=== PATIENT | female | born 1985 | race Two or more races ===

== ENCOUNTER 2020-07-01 14:15 | Inpatient (IN) | payer OTHER ==
[~2020-07-01] VITALS: Ht 167.6 cm; Wt 78.9 kg
[2020-07-07] MEDS ORDERED: PRENATAL CAPLE1 EAC1 PO (18:33)
== END 2020-07-09 10:45 | disposition home or self-care (01) | DRG 807 ==
LOC: SURG-SUITE 07-07 17:45 → LDR 07-07 17:45 → SURG-SUITE 07-07 18:57 → OB/GYN 07-10 14:15
PROVIDERS: ADMIT Obstetrics & Gynecology; ATTEND Obstetrics & Gynecology
PROC: 10E0XZZ Delivery of Products of Conception, External Approach (ICD-10-PCS; principal; 2020-07-07)
PROC: 4A1HXFZ Monitoring of Products of Conception, Cardiac Rhythm, External Approach (ICD-10-PCS; 2020-07-07)
DX: O70.1 Second degree perineal laceration during delivery (principal); Z37.0 Single live birth; Z3A.39 39 weeks gestation of pregnancy; Z20.822 Contact with and (suspected) exposure to COVID-19

== ENCOUNTER 2020-07-04 08:35 | Outpatient (CLI) | payer OTHER | END 2020-07-04 09:45 | disposition home or self-care (01) | LOC: NST 08:35 | PROVIDERS: ATTEND Obstetrics & Gynecology Maternal & Fetal Medicine | DX: Z34.83 Encounter for supervision of other normal pregnancy, third trimester (principal) ==

== ENCOUNTER → 2020-07-07 | Outpatient (CLI) | payer OTHER ==
[~2020-07-07] MED LIST: PRENATAL CAPLE1 EAC1 PO
== END | disposition home or self-care (01) ==
LOC: NST 10:12
PROVIDERS: ATTEND Obstetrics & Gynecology
DX: Z34.83 Encounter for supervision of other normal pregnancy, third trimester (principal)

== ENCOUNTER 2024-05-22 10:43 | Outpatient (CLI) | payer OTHER | END 2024-05-22 10:48 | disposition home or self-care (01) | LOC: SONOGRAMA 10:43 | PROVIDERS: ATTEND Pathology Anatomic Pathology & Clinical Pathology | DX: E04.2 Nontoxic multinodular goiter (principal); D34 Benign neoplasm of thyroid gland ==

== ENCOUNTER 2024-08-31 05:28 | Day surgery (SDC) | payer OTHER ==
[2024-08-25 10:29] LABS: URINE APPEARANCE Clear; URINE BILIRRUBIN Negative (NEGATIVE); URINE BLOOD Negative; URINE COLOR Yellow; URINE GLUCOSE Negative (NEGATIVE); URINE KETONE Negative (NEGATIVE); URINE LEUKOCYTE Negative; URINE NITRATE Negative; URINE PROTEIN Negative (NEGATIVE); URINE UROBILINOGEN 0.2 E.U./dl
[2024-08-25 10:30] LABS: URINE EPITHELIAL CELLS 45.8 uL (0.0-38.8); URINE RBC 27.1 uL (0.0-20.8); URINE WBC 7.4 uL (0.0-23.2)
[2024-08-25 10:36] LABS: URINE CAST 0.14 uL (0.0-1.40)
[2024-08-25 10:41] LABS: HEMATOCRIT 38.6 % (36.0-45.00); HEMOGLOBIN 12.8 g/dL (12.0-15.00); MEAN CORPUSCULAR HEMOGLOBIN 26.5 pg (27.00-32.0); MEAN CORPUSCULAR HGB CONC 33.1 g/dl (32.0-36.0); PLATELET COUNT 208 K/uL (150-450); RED BLOOD COUNT 4.82 M/uL (4.00-6.00); RED CELL DISTRIBUTION WIDTH 14.2 % (11.5-14.5)
[2024-08-25 11:23] LABS: ALBUMIN 3.6 gm/dL (3.4-5.0); BILIRUBIN TOTAL 0.48 mg/dL (0.3-1.2); CALCIUM 8.9 mg/dL (8.5-10.1); CREATININE SERUM 0.51 mg/dL (0.55-1.02); GFR 132.89; GLOBULINA 3.3 G/DL (2.4-3.5); POTASSIUM 4.22 mEq/L (3.5-5.1); TOTAL PROTEIN 6.9 gm/dL (6.4-8.2)
[2024-08-25 11:36] VITALS: BP 123/83
[2024-08-25 12:25] LABS: INR 1.02; PARTIAL THROMBOPLASTIN TIME 29.1 SECONDS (22.0-34.0); PROTHROMBIN TIME 11.1 SECONDS (9.0-11.5)
[~2024-08-31] VITALS: Ht 167.6 cm; Wt 72.6 kg
[2024-08-31] MEDS ORDERED: DEXAMETHASONE SODIUM PHOSPHATE 4 MG/ML VIAL ONE ×2 (07:04→07:26)
== END 2024-08-31 11:30 | disposition home or self-care (01) ==
LOC: SURH 05:28 → O/R 05:28 → CIR.AMB 05:28 → SURH 07:00 → EDSTATUS 08:15 → SURH 08:15 → CIR.AMB 11:30 → O/R 11:30
PROVIDERS: ATTEND Surgery
DX: C73 Malignant neoplasm of thyroid gland (principal); E04.1 Nontoxic single thyroid nodule

== ENCOUNTER 2024-12-14 05:29 | Inpatient (IN) | payer OTHER ==
[2024-12-08 13:38] VITALS: BP 117/80
[~2024-12-14] VITALS: Ht 167.6 cm; Wt 72.1 kg
[~2024-12-14 05:29] MED LIST changes: +SYNTHROID50 MCG PO; +VITAMIN D
[2024-12-14] MEDS ORDERED: DEXAMETHASONE SODIUM PHOSP/PF 10 MG/ML VIAL IV ONE (08:00)
[2024-12-14] MEDS ORDERED: ENALAPRILAT DIHYDRATE 1.25 MG/ML VIAL IV PRN (10:30)
[2024-12-14] MEDS ORDERED: ONDANSETRON HCL 2 MG/ML VIAL IV PRN (10:30)
[2024-12-14] MEDS ORDERED: MORPHINE SULFATE 4 MG/ML VIAL IV ONE ×2 (10:50→11:20)
[2024-12-14 16:00] VITALS: BP 113/74; O2SAT 97
[2024-12-14] MEDS ORDERED: MAG HYDROX/ALUMINUM HYD/SIMETH 30 ML BLIST.PACK PO ONE ×2 (16:01→22:48)
[2024-12-14] MEDS ORDERED: ACETAMINOPHEN 500 MG GEL..CAP PO SCH (17:00)
[2024-12-14] MEDS ORDERED: LIDOCAINE HCL 60 ML,MAG HYDROX/ALUMINUM HYD/SIMETH 60 ML,DIPHENHYDRAMINE HCL 150 MG MM SCH (17:00)
[2024-12-14] MEDS ORDERED: CYCLOBENZAPRINE HCL 5 MG TABLET PO SCH (17:00)
[2024-12-14] MEDS ORDERED: TRAMADOL HCL 50 MG TABLET PO SCH (17:00)
[2024-12-14] MEDS ORDERED: PANTOPRAZOLE SODIUM 40 MG/VIAL VIAL IV PUSH SCH (21:00)
[2024-12-15] MEDS ORDERED: LEVOTHYROXINE SODIUM 112 MCG TABLET PO SCH (07:00)
== END 2024-12-15 09:56 | disposition home or self-care (01) | DRG 627 ==
LOC: CIR.AMB 05:29 → SURH 10:28 → O/R 10:28 → CIR.AMB 11:00 → SURH 12:01
PROVIDERS: ADMIT Surgery; ATTEND Surgery
PROC: 07T20ZZ Resection of Left Neck Lymphatic, Open Approach (ICD-10-PCS; 2024-12-14)
PROC: 0GSN0ZZ Reposition Right Inferior Parathyroid Gland, Open Approach (ICD-10-PCS; 2024-12-14)
PROC: 0GTH0ZZ Resection of Right Thyroid Gland Lobe, Open Approach (ICD-10-PCS; principal; 2024-12-14 07:00)
DX: D34 Benign neoplasm of thyroid gland (principal); E04.2 Nontoxic multinodular goiter; Z85.850 Personal history of malignant neoplasm of thyroid; E06.3 Autoimmune thyroiditis